=== PATIENT | female | born 1945 | race Caucasian/White ===

== ENCOUNTER → 2016-11-12 | Outpatient (CLI) | payer MEDICARE, BC, MEDICAID ==
[~2016-11-12] MED LIST: B-12 INJ1000 MCG/M IM; CATAPRES-DPS0.1 MG PO; CATAPRES-T0.3 MG/24 TP; CHLORASEPTIC SPR6 OZ MM; CHLORASEPTIC SPR6 OZ PO; COLACE-DPS100 MG PO; COUMADIN5 MG PO; CYMBALTA60 MG PO; DELTASONE DPS10 MG PO; DESYREL-DPS50 MG PO; DULCOLAX-DPS10 MG PR; DUONEB DPS3 ML IH; FEOSOL-DPS325 MG PO; GLUCOPHAGE-DPS500 MG PO; HYDROCODONE 10M10 MG PO; KLOR-CON M2020 ME1 PO; LANOXIN DPS0.125 MG PO; LASIX DPS40 MG PO; LASIX80 MG PO; LIDODERM PATC1 PATCH TP; LOPRESSOR DPS100 MG PO; LYRICA75 MG PO; MAALOX DPS30 ML PO; MACROBID100 MG PO; MILK OF MAGNESI10 ML PO; MIRALAX PACKET17 GM PO; MYCOSTATIN PWD15 GM TP; NITROSTAT0.4 MG SL; OCEAN37.5 ML NS; PEPCID20 MG PO; RESTORIL DPS30 MG PO; SENOKOT S1 TAB PO; SINEMET 10/1001 TAB PO; SURFAK DPS240 MG PO; TEARS NATURAL D15 ML OU; THERA1 EACH PO; TYLENOL DPS325 MG PO; ULTRAM DPS50 MG PO; ULTRAM50 MG PO; VITAMIN D-32000 UNI1 PO; XARELTO1 EACH PO; ZOFRAN4 MG PO; ZYRTEC10 M3 PO
== END | disposition home or self-care (01) ==
LOC: RAD.S 18:00
PROC: 05S Upper Veins, Reposition (ICD-10-PCS; principal; 2016-11-12)
DX: Z45.2 Encounter for adjustment and management of vascular access device (principal)